=== PATIENT | female | born 1945 | race Caucasian/White ===

== ENCOUNTER 2017-07-02 09:38 | Emergency (ER) | payer OTHER ==
[~2017-07-02] VITALS: Ht 157.5 cm; Wt 73.7 kg
[2017-07-02 09:45] VITALS: Ht 157.5 cm; Wt 73.7 kg
[2017-07-02] MEDS ORDERED: ACETAMINOPHEN 500 MG TAB PO STA (10:50)
[2017-07-02] MEDS ORDERED: SOD CHLORIDE 0.9% 1,000 ML IV ONE (11:00)
[2017-07-02] MEDS ORDERED: IPRATROPIUM (NEB) 0.5 MG/2.5 ML AMP NEB STA (11:05)
[2017-07-02] MEDS ORDERED: LEVALBUTEROL (NEB) 1.25 MG/0.5 ML AMP INH STA (11:05)
--- NOTE | 2017-07-02 12:12 | ERD ---
ER Documentation Chief Complaint Chief Complaint PT presents to ER with flu like symptoms X 3 days, TACHY HPI This is a 71-year-old female who presents the emergency department today with daughter complaining of cough and "pain in her bones" for the past 3 days. States that she has a history of blood clots. States that she has not taken any medication for pain. States that she feels cold but is unsure if she has had a fever. States that she does have some pain in her chest when she takes a deep breath and when she coughs. Denies any vomiting, diarrhea, abdominal pain , chest pain. ROS All systems reviewed and are negative except as per history of present illness. Medications Home Meds Active Scripts Cephalexin* (Keflex*) 500 Mg Capsule, 500 MG PO QID for 7 Days, CAP Prov:ZOILA CALLAWAY PA-C 07/02/17 Guaifenesin-Dextromethorphan* (Robitussin* DM) 100MG/10MG/5ML Syrup, 10 ML PO Q6H Y for COUGH for 5 Days, ML Prov:ZOILA CALLAWAY PA-C 07/02/17 Acetaminophen* (Tylophen*) 500 Mg Capsule, 1 CAP PO Q6H Y for PAIN AND OR ELEVATED TEMP, #30 CAP Prov:ZOILA CALLAWAY PA-C 07/02/17 Ibuprofen* (Motrin*) 600 Mg Tab, 600 MG PO Q6, #30 TAB Prov:ZOILA CALLAWAY PA-C 07/02/17 Oseltamivir Phosphate* (Tamiflu*) 75 Mg Capsule, 75 MG PO BID for 5 Days, CAP Prov:ZOILA CALLAWAY PA-C 07/02/17 PMhx/Soc Medical and Surgical Hx: pt denies Surgical Hx History of Surgery: No Anesthesia Reaction: No Hx Miscellaneous Medical Probl: Yes (HTN and coagulation problem) Hx Alcohol Use: No Hx Substance Use: No Hx Tobacco Use: No Smoking Status: Never smoker Physical Exam Vitals Vital Signs Date Time Temp Pulse Resp B/P Pulse Ox O2 Delivery O2 Flow Rate FiO2 07/02/17 12:31 97.8 75 18 133/80 100 Room Air 07/02/17 11:36 102 20 98 21 07/02/17 09:45 99.5 136 20 132/72 97 Physical Exam Const: NAD Head: Atraumatic Eyes: Normal Conjunctiva ENT: Normal External Ears, Nose and Mouth. Neck: Full range of motion..~ No meningismus. Resp: Breath sounds right-sided lung phillips. Cardio: Tachycardic Abd: Soft, non tender, non distended. Normal bowel sounds Skin: No petechiae or rashes Back: No midline or flank tenderness Ext: No cyanosis, or edema no calf tenderness Neur: Awake and alert Psych: Normal Mood and Affect Result Diagram: 07/02/17 1157 07/02/17 1157 Results 24 hrs Laboratory Tests Test 07/02/17 11:00 07/02/17 11:57 Urine Color JENAE Urine Clarity CLOUDY Urine pH 5.0 Urine Specific [place] 1.028 Urine Ketones TRACEmg/dL Urine Nitrite NEGATIVEmg/dL Urine Bilirubin 1+mg/dL Urine Urobilinogen 2+mg/dL Urine Leukocyte Esterase 2+Lorena/ul Urine Microscopic RBC 69/HPF Urine Microscopic WBC 74/HPF Urine Squamous Epithelial Cells MODERATE/HPF Urine Bacteria FEW/HPF Urine Mucus FEW/HPF Urine Hemoglobin NEGATIVEmg/dL Urine Glucose NEGATIVEmg/dL Urine Total Protein 3+mg/dl White Blood Count 9.710^3/ul Red Blood Count 4.1910^6/ul Hemoglobin 12.7g/dl Hematocrit 38.9% Mean Corpuscular Volume 92.8fl Mean Corpuscular Hemoglobin 30.3pg Mean Corpuscular Hemoglobin Concent 32.6g/dl Red Cell Distribution Width 13.7% Platelet Count 55731^3/UL Mean Platelet Volume 11.0fl Neutrophils % 72.7% Lymphocytes % 19.9% Monocytes % 6.4% Eosinophils % 0.2% Basophils % 0.3% Nucleated Red Blood Cells % 0.0/100WBC Neutrophils # 7.110^3/ul Lymphocytes # 1.910^3/ul Monocytes # 0.610^3/ul Eosinophils # 0.010^3/ul Basophils # 0.010^3/ul Nucleated Red Blood Cells # 0.010^3/ul Prothrombin Time 22.8Sec Prothrombin Time Ratio 1.8 INR International Normalized Ratio 1.96 Activated Partial Thromboplast Time 43.7Sec Sodium Level 140mmol/L Potassium Level 4.1mmol/L Chloride Level 103mmol/L Carbon Dioxide Level 25mmol/L Anion Gap 16 Blood Urea Nitrogen 23mg/dl Creatinine 1.35mg/dl Glucose Level 119mg/dl Lactic Acid Level 1.5mmol/L Calcium Level 8.6mg/dl Total Bilirubin 0.2mg/dl Direct Bilirubin 0.00mg/dl Indirect Bilirubin 0.2mg/dl Aspartate Amino Transf (AST/SGOT) 29IU/L Alanine Aminotransferase (ALT/SGPT) 40IU/L Alkaline Phosphatase 111IU/L Troponin I 0.017ng/ml Total Protein 7.2g/dl Albumin 4.1g/dl Globulin 3.10g/dl Albumin/Globulin Ratio 1.32 Digoxin Level < 0.4ng/ml Current Medications Medications (Trade) Dose Ordered Sig/Chuy Route PRN Reason Start Time Stop Time Status Last Admin Dose Admin Acetaminophen 500 mg 500 mg ONCE STAT PO 07/02/17 10:50 07/02/17 10:53 DC 07/02/17 11:55 Sodium Chloride (NS) 1,000 ml @ 1,000 mls/hr Q1H ONCE IV 07/02/17 11:00 07/02/17 11:59 DC 07/02/17 11:52 Ipratropium [place] (Atrovent 0.02% (Neb)) 0.5 mg ONCE STAT NEB 07/02/17 11:05 07/02/17 11:07 DC 07/02/17 11:27 Levalbuterol 1.25 mg 1.25 mg ONCE STAT INH 07/02/17 11:05 07/02/17 11:07 DC 07/02/17 11:28 Ceftriaxone Sodium (Rocephin) 50 ml @ 100 mls/hr ONCE ONCE IVPB 07/02/17 13:30 07/02/17 13:59 DC 07/02/17 13:28 DIAGNOSTIC IMAGING REPORT Patient: MATTHEW BLAND : 1945 Age: 71 Sex: F MR #: [id number] DOS: 07/02/17 1050 Ordering MD: ZOILA CALLAWAY PA-C Location: [facility] Room/Bed: PROCEDURE: Chest 1 views. CLINICAL INDICATION: Shortness of breath. Sepsis. TECHNIQUE: Single view of the chest was obtained. COMPARISON: None. FINDINGS: The heart is large. No consolidations are identified. No pneumothorax is seen. Calcified granulomas are identified in the left lower lobe. Osseous structures are intact. IMPRESSION: Cardiomegaly . Calcified granulomatous disease in the left lower lobe. RPTAT: AA .Carlos Mesa MD, MD Date Time Electronically viewed and signed by .Carlos Mesa MD, on 07/02/2017 12:26 .P/ CC: ZOILA CALLAWAY PA-C RUN DATE: 07/02/17 [facility] PAGE 1 RUN TIME: [id number] [place] [address] Shaka Helton M.D. [employer] LAWRENCE#: [id number] Name: MATTHEW BLAND Age/Sex: 71/F Attend Dr: GASTON GRANT MD Acct: [id number] MR# : [id number] : 1945 Location: FTE Admit: 07/02/17 Specimen: [id number] Status: Complete [place]: 07/02/17-0 Rcvd: 07/02 Source: [facility] Sp Descrip: Procedure Result Microbiology INFLUENZA A & B BY EIA Final INFLU A&B BY EIA INFLUENZA A POSITIVE (Ref Range Neg) INFLUENZA B NEGATIVE (Ref Range Neg) Phoned to CHANTAL COLLADO, AT 1509, 07/02/17, HN. ................................................................................ ............ Flags: Critical Hi = *H Critical Lo = *L Microbiology Abnormal = * Abnormal Hi = H Abnormal Lo = L Blood Bank Abnormal = * Susceptability Flags: S = Sensitive R = Resistant I = Intermediate END OF REPORT Procedures/MDM This is a 71-year-old female who presents to the emergency department today for cough and body aches for the past 3 days. Patient is a poor historian and she is here with her daughter who also is a poor historian and is unable to tell me who the patient's primary care doctor is. Daughter indicated that other sister usually goes with the mother to her doctor's appointments and that her doctors "somewhere in [place]". I looked at the patient's pill bottles and there are 3 different providers listed on the bottles. Patient takes digoxin 25 mg daily, Lasix 20 mg daily and warfarin 5 mg daily. Patient was afebrile here in the emergency department however she was tachycardic between 111 and 136 at intake. The remainder of her vital signs are stable and her oxygen saturation 97%. I discussed the patient with Dr. Grant and he recommended a full sepsis workup in addition to influenza swab Laboratory workup shows no elevated white blood cell count. She is not anemic. Platelets are within normal limits. Electrolytes are within normal limits. Glucose is within normal limits. Liver enzymes are within normal limits. Troponin is negative. Dig levels are within normal limits UA 2+ leukocyte esterase. Negative nitrates. 74 microscopic white blood cells and 69 microscopic red blood cell Urine was sent for culture Chest x-ray shows calcified granuloma pneumatosis disease in the left lower lobe. There are no consolidations identified or pneumothorax. Low suspicion for pneumonia, PE, abscess, pleural effusion Influenza A is POSITIVE Influenza B is negative EKG read and interpreted by Dr. Grant rate [address] elevation.. No QT prolongation. Nonspecific ST and T-wave changes. Sinus Tachycardia She had some coarse breath sounds in her right-sided lung phillips and therefore did give her breathing treatment. She was also given IV fluids, Rocephin, Tylenol here in the emergency department patient reported feeling significantly better. Symptoms at this time is consistent with urinary tract infection and influenza She will be given a prescription for Keflex, Tamiflu, Robitussin, Tylenol and Motrin. I have explained all results to the patient and her daughter. I also discussed the patient with Dr. Diego prior to discharging the patient. Patient does have good follow-up with a PCP and does not require admission at this time for the positive influenza. However given that patient does have comorbidities I will treat the patient with Tamiflu.. She was given strict return precautions to return for any worsening of symptoms. Patient and daughter understood and agreed with the plan. At this time the patient is stable for discharge and outpatient management. Patient should follow up with their PCP in the next 1-2 days. They may return to the emergency department sooner for any persistent or worsening of symptoms. Patient and daughter understood and agreed with the plan. Departure Diagnosis: Primary Impression: Influenza Additional Impression: UTI (urinary tract infection) Urinary tract infection type: site unspecified Hematuria presence: with hematuria Qualified Code: N39.0 - Urinary tract infection with hematuria, site unspecified Condition: ZOILA Adrian PA-C Jul 02, 2017 12:12
[2017-07-02 12:22] LABS: BASOPHILS % 0.3 % (0.0-2.0); EOSINOPHILS % 0.2 % (0.0-7.0); HEMATOCRIT 38.9 % (37.0-47.0); HEMOGLOBIN 12.7 g/dl (12.0-16.0); LYMPHOCYTES # 1.9 10^3/ul (0.8-2.9); LYMPHOCYTES % 19.9 % (15.0-51.0); MEAN CORPUSCULAR HEMOGLOBIN 30.3 pg (29.0-33.0); MEAN CORPUSCULAR HGB CONC 32.6 g/dl (32.0-37.0); MEAN CORPUSCULAR VOLUME 92.8 fl (82.0-101.0); MONOCYTE # 0.6 10^3/ul (0.3-0.9); MONOCYTES % 6.4 % (0.0-11.0); NEUTROPHIL # 7.1 10^3/ul (1.6-7.5); NEUTROPHILS % 72.7 % (39.0-77.0); PLATELET COUNT 234 10^3/UL (140-415); RED BLOOD COUNT 4.19 10^6/ul (4.20-5.40); RED CELL DISTRIBUTION WIDTH 13.7 % (11.5-14.5); WHITE BLOOD COUNT 9.7 10^3/ul (4.8-10.8)
--- NOTE | 2017-07-02 12:27 | RADRPT ---
PROCEDURE: Chest 1 views. CLINICAL INDICATION: Shortness of breath. Sepsis. TECHNIQUE: Single view of the chest was obtained. COMPARISON: None. FINDINGS: The heart is large. No consolidations are identified. No pneumothorax is seen. Calcified granuloma s are identified in the left lower lobe. Osseous structures are intact. IMPRESSION: Cardiomegaly . Calcified granulomatous disease in the left lower lobe. RPTAT: AA .Carlos Mesa MD, Date Time Electronically viewed and signed by .Carlos Mesa MD, MD on 07/02/2017 12:26 .P/
[2017-07-02 12:31] VITALS: BP 133/80; PULSE 75; RESP 18; TEMP 97.8
[2017-07-02 12:35] LABS: ALBUMIN 4.1 g/dl (3.3-4.9); ALBUMIN/GLOBULIN RATIO 1.32; BILIRUBIN,INDIRECT 0.2 mg/dl (0-1.1); BILIRUBIN,TOTAL 0.2 mg/dl (0.2-1.3); CALCIUM 8.6 mg/dl (8.4-10.2); CREATININE 1.35 mg/dl (0.44-1.00); POTASSIUM 4.1 mmol/L (3.5-5.1); TOTAL PROTEIN 7.2 g/dl (6.1-8.1)
[2017-07-02 12:46] LABS: TROPONIN-I 0.017 ng/ml (0.00-0.12)
[2017-07-02 12:52] LABS: ADD UMIC YES; UR ASCORBIC ACID NEGATIVE (NEGATIVE); UR BACTERIA FEW /HPF (NONE SEEN); UR BILIRUBIN (Dip) 1+ mg/dL (NEGATIVE); UR BLOOD (Dip) NEGATIVE (NEGATIVE); UR CLARITY CLOUDY (CLEAR); UR COLOR AMBER (YELLOW); UR GLUCOSE (Dip) NEGATIVE (NEGATIVE); UR KETONES (Dip) TRACE mg/dL (NEGATIVE); UR LEUKOCYTE ESTERASE (Dip) 2+ Leu/ul (NEGATIVE); UR MUCUS FEW /HPF (NONE SEEN); UR NITRITE (Dip) NEGATIVE (NEGATIVE); UR NONSQUAMOUS EPITHELIAL CELL 1 /HPF (NONE SEEN); UR RBC 69 /HPF (0-5); UR SPECIFIC GRAVITY (Dip) 1.028 (1.003-1.030); UR SQUAMOUS EPITHELIAL CELL MODERATE /HPF (FEW); UR TOTAL PROTEIN (Dip) 3+ mg/dl (NEGATIVE); UR UROBILINOGEN (Dip) 2+ mg/dL (NEGATIVE)
[2017-07-02] MEDS ORDERED: CEFTRIAXONE 1 GM/50 ML (PMX) 50 ML IVPB ONE (13:30)
[2017-07-02 13:33] LABS: INR 1.96; PARTIAL THROMBOPLASTIN TIME 43.7 Sec (25.0-35.0); PROTIME 22.8 Sec (11.9-14.9); PT RATIO 1.8
[2017-07-02] MEDS ORDERED: OSLT75C PO (15:23)
[2017-07-02] MEDS ORDERED: ACET500C5 PO (15:23)
[2017-07-02] MEDS ORDERED: IBUP-1542 PO (15:23)
[2017-07-02] MEDS ORDERED: CEPH-443 PO (15:24)
[2017-07-02] MEDS ORDERED: UDROBDM PO (15:24)
== END 2017-07-02 17:06 | disposition home or self-care (01) ==
LOC: FTE 09:38
DX: J10.1 Influenza due to other identified influenza virus with other respiratory manifestations (principal); N39.0 Urinary tract infection, site not specified; I10 Essential (primary) hypertension; R06.02 Shortness of breath
CPT/HCPCS: 36415; 71010; 80053; 80162; 81001; 83605; 84484; 85025; 85610; 85730; 87040; 87086; 87400; 93005; 94664; 96374; J0696; J7030; Z7502; Z7610